=== PATIENT | female | born 1990 | race Caucasian/White ===

== ENCOUNTER 2020-02-19 15:21 | Emergency (ER) | payer BC, MEDICAID ==
[~2020-02-19] VITALS: Ht 170.2 cm; Wt 46.0 kg
[2020-02-19] MEDS ORDERED: KETOROLAC 30MG/ML VIAL IM ONE (16:15)
[2020-02-19] MEDS ORDERED: CYCLOBENZAPRINE 10MG TABLET PO ONE (16:15)
[2020-02-19 17:39] VITALS: BP 113/55
== END 2020-02-19 17:40 | disposition home or self-care (01) ==
LOC: ER 15:24
DX: R07.81 Pleurodynia (principal); M54.9 Dorsalgia, unspecified; M25.511 Pain in right shoulder; V43.52XA Car driver injured in collision with other type car in traffic accident, initial encounter; Y93.89 Activity, other specified; Y92.410 Unspecified street and highway as the place of occurrence of the external cause
CPT/HCPCS: 71101; 73030; 96372; 99284; J1885

== ENCOUNTER 2021-09-04 13:08 | Emergency (ER) | payer BC ==
[~2021-09-04] VITALS: Ht 170.2 cm; Wt 44.0 kg
[2021-09-04 13:26] VITALS: BP 112/45
[2021-09-04] MEDS ORDERED: ACETAMINOPHEN 325MG TABLET PO ONE (13:45)
== END 2021-09-04 15:47 | disposition left against medical advice (07) ==
LOC: ER 13:08
DX: R10.9 Unspecified abdominal pain (principal); R55 Syncope and collapse; R11.10 Vomiting, unspecified
CPT/HCPCS: 71045; 82962; 93005; 99283

== ENCOUNTER 2022-07-19 21:16 | Emergency (ER) | payer BC, MEDICAID ==
[~2022-07-19] VITALS: Ht 170.2 cm; Wt 46.1 kg
[2022-07-19 21:56] LABS: BASOPHILS % 0.2 % (0.0-2.0); EOSINOPHILS % 1.2 % (0.0-5.0); HEMATOCRIT. 37.7 % (36.0-48.0); HEMOGLOBIN. 12.7 g/dL (12.0-16.0); LYMPHOCYTES % 34.9 % (20.0-50.0); MEAN CORPUSCULAR HEMOGLOBIN 33.8 pg (28.0-32.0); MEAN CORPUSCULAR VOLUME 100.2 fL (81.0-99.0); MEAN PLATELET VOLUME 8.5 fl (7.4-10.4); MONOCYTES % 5.3 % (2.0-8.0); NEUTROPHILS % 58.4 % (40.0-76.0); PLATELET 257 x1000/uL (130-400); RED BLOOD CELL COUNT 3.76 mill/uL (4.2-5.4); RED CELL DISTRIBUTION WIDTH 13.4 % (11.6-14.6)
[2022-07-19 22:03] LABS: CHLORIDE 111 mEq/L (98-107)
[2022-07-20 01:52] LABS: CLARITY URINE CLEAR (CLEAR); COLOR URINE YELLOW (YELLOW); KETONES URINE 3+ (NEGATIVE); LEUKOCYTE ESTERASE URINE TRACE (NEGATIVE); NITRITE URINE NEGATIVE (NEGATIVE); OCCULT BLOOD URINE 1+ (NEGATIVE); PH URINE >=9.0 (4.5-8.0); PROTEIN URINE 1+ (NEGATIVE); SPECIFIC GRAVITY URINE 1.022 (1.005-1.030)
[2022-07-20] MEDS ORDERED: KETOROLAC 30MG/ML VIAL IV STA (02:14)
[2022-07-20] MEDS ORDERED: ONDANSETRON HCL 4MG/2ML INJ IV STA (02:14)
[2022-07-20] MEDS ORDERED: SODIUM CHLORIDE 0.9% 1,000 ML IV ONE (02:15)
[2022-07-20 04:00] VITALS: BP 108/58
[2022-07-20] MEDS ORDERED: PROT40 MT (04:16)
[2022-07-20] MEDS ORDERED: ONDA4TAB50 MT (04:16)
== END 2022-07-20 04:25 | disposition home or self-care (01) ==
LOC: ER 21:16
DX: K29.70 Gastritis, unspecified, without bleeding (principal)
CPT/HCPCS: 36415; 80053; 81003; 83690; 85025; 93005; 96374; 96375; 99284; J1885; J2405; J7030; Z7610